=== PATIENT | male | born 1985 | race Caucasian/White ===

== ENCOUNTER 2022-11-13 14:15 | Emergency (ER) | payer SELFPAY ==
[2022-11-13 15:15] LABS: Absolute Lymphocytes (CBC) 2.3 K/uL (0.7-4.9); Hematocrit 46.4 % (39.6-49.0); Lymphocytes % 29.6 % (15.3-44.8); MCV 89.4 fL (80-100); RBC Red Blood Cell Count 5.19 M/uL (4.33-5.43)
[2022-11-13 15:30] LABS: Magnesium 2.4 mg/dL (1.6-2.4); Potassium 3.4 mmol/L (3.5-5.1)
--- NOTE | 2022-11-13 15:56 | RAD REPORT ---
EXAM DESCRIPTION: RAD - Chest Single View - 11/13/2022 3:32 pm CLINICAL HISTORY: CHEST PAIN COMPARISON: Portable 12/21/2017 TECHNIQUE: AP portable chest image was obtained 11/13/2022 3:32 pm . FINDINGS: Lung volumes are low which accentuates the interstitial pattern potentially masking mild e radha or infiltrate. Heart size and vasculature within range of normal for shallow inspiration exam. No measurable pleural effusion and no pneumothorax. No acute bony abnormality seen. No acute aortic findings suspected. IMPRESSION: Limited portable study without acute cardiopulmonary finding. Low lung volumes could mask minimal interstitial edema or infiltrate.
[2022-11-13 16:43] LABS: MPV 8.8 fL (7.6-11.3)
--- NOTE | 2022-11-13 17:38 | ER ---
Nurse's Notes [facility] [place] Name: Ezio James Age: 37 yrs Sex: Male : 1985 Arrival Date: 11/13/2022 Time: 14:16 Bed 20 Private MD: Diagnosis: Chest pain, unspecified;Essential (primary) hypertension Presentation: 11/13 14:17 Chief complaint: EMS states: Left sided chest pain x 1 hour. BGL 43, 130 after oral eh3 glucose. In police custody, officer remains at bedside. Coronavirus screen: At this time, the client does not indicate any symptoms associated with coronavirus-19. Ebola Screen: No symptoms or risks identified at this time. Initial Sepsis Screen: Does the patient meet any 2 criteria? No. Patient's initial sepsis screen is negative. Does the patient have a suspected source of infection? No. Patient's initial sepsis screen is negative. Risk Assessment: Do you want to hurt yourself or someone else? Patient reports no desire to harm self or others. Onset of symptoms was November 13, 2022. 14:17 Method Of Arrival: EMS: [place] [id number] 14:17 Acuity: LISETH 3 eh3 Triage Assessment: 14:19 General: Appears distressed, uncomfortable, Behavior is cooperative, appropriate for 3 age, agitated. Pain:. Historical: - Allergies: 14:19 No Known Allergies; eh3 - PMHx: 14:19 Hypertension; eh3 - Immunization history:: Adult Immunizations unknown. - Social history:: Smoking status: unknown. Screenin:00 [facility] ED Fall Risk Assessment (Adult) History of falling in the last 3 months, eh3 including since admission No falls in past 3 months (0 pts) Confusion or Disorientation No (0 pts) Intoxicated or Sedated No (0 pts) Impaired Gait No (0 pts) Mobility Assist Device Used No (0 pt) Altered Elimination No (0 pt) Score/Fall Risk Level 0 - 2 = Low Risk. Abuse screen: Denies threats or abuse. Denies injuries from another. Nutritional screening: No deficits noted. Tuberculosis screening: No symptoms or risk factors identified. Assessment: 14:19 Reassessment: No changes from previously documented assessment. See triage assessment. eh3 Pain: Pain does not radiate. Pain began 1 hour ago. Cardiovascular: Reports chest pain, lightheadedness, R ear pain Rhythm is sinus rhythm. 15:00 Reassessment: Patient appears in no apparent distress at this time. Patient and/or 3 family updated on plan of care and expected duration. Pain level reassessed. Patient is alert, oriented x 3, equal unlabored respirations, skin warm/dry/pink. 16:00 Reassessment: Patient appears in no apparent distress at this time. Patient and/or 3 family updated on plan of care and expected duration. Pain level reassessed. Patient is alert, oriented x 3, equal unlabored respirations, skin warm/dry/pink. 17:00 Reassessment: Patient appears in no apparent distress at this time. Patient and/or 3 family updated on plan of care and expected duration. Pain level reassessed. Patient is alert, oriented x 3, equal unlabored respirations, skin warm/dry/pink. Vital Signs: 14:17 BP 160 / 102; Pulse 88; Resp 21; Temp 97.8; Pulse Ox 100% on R/A; Weight 102.06 kg; 3 Height 5 ft. 10 in. (177.80 cm); Pain 8/10; 15:00 BP 140 / 83; Pulse 88; Resp 19; Pulse Ox 99% on R/A; 3 16:00 BP 150 / 72; Pulse 81; Resp 18; Pulse Ox 96% on R/A; eh3 17:00 BP 145 / 62; Pulse 86; Resp 18; Pulse Ox 99% on R/A; 3 14:17 Body Mass Index 32.28 (102.06 kg, 177.80 cm) [facility] ED Course: 14:16 Patient arrived in ED. ms3 14:16 Lewis Elaine DO is Attending Physician. ms3 14:19 Triage completed. 3 14:19 Arm band placed on. 3 14:44 Odalis Garcia, DALE is Primary Nurse. 3 14:55 Inserted saline lock: 20 gauge in right antecubital area, using aseptic technique. 3 Blood collected. 15:00 Patient has correct armband on for positive identification. Bed in low position. Call [facility] light in reach. Side rails up X2. Adult w/ patient. Client placed on continuous cardiac and pulse oximetry monitoring. NIBP monitoring applied. Door closed. Noise minimized. Lights dimmed. Warm blanket given. 15:00 Patient maintains SpO2 saturation greater than 95% on room air. eh3 15:34 XRAY Chest (1 view) In Process Unspecified. EDMS 17:37 Pancho Sorto DO is Referral Physician. ms3 17:37 Denys Rivera MD is Referral Physician. ms3 17:43 No provider procedures requiring assistance completed. IV discontinued, intact, eh3 bleeding controlled, No redness/swelling at site. Pressure dressing applied. Administered Medications: No medications were administered Medication: 17:43 VIS not applicable for this client. eh3 Outcome: 17:37 Discharge ordered by . ms3 17:49 Discharged to Law Enforcement eh3 17:49 Condition: stable 17:49 Discharge instructions given to patient, police, Instructed on discharge instructions, follow up and referral plans. Demonstrated understanding of instructions, follow-up care. 17:49 Patient left the ED. eh3 Signatures: Dispatcher [employer] EDNJ Lewis Elaine DO DO ms3 Odalis Garcia, RN RN eh3 Corrections: (The following items were deleted from the chart) 14:20 14:17 BP 148 / 88; Pulse 88bpm; Resp 21bpm; Pulse Ox 100% RA; Temp 97.8F; 102.06 kg; eh3 Height 5 ft. 10 in.; BMI: 32.2; Pain 8/10; eh3
--- NOTE | 2022-11-13 17:38 | EDPHYS ---
Physician Documentation [facility] Name: Ezio James Age: 37 yrs Sex: Male : 1985 Arrival Date: 11/13/2022 Time: 14:16 Bed 20 Private MD: ED Physician Lewis Elaine HPI: 11/13 14:32 This 37 yrs old Male presents to ER via EMS with complaints of Chest Pain. ms3 14:32 The patient or guardian reports chest pain that is located primarily in the chest ms3 diffusely. The pain radiates to the left arm. Associated signs and symptoms: Pertinent positives: None. Pertinent negatives: nausea, vomiting. The chest pain is described as sharp. Duration: The patient or guardian reports a single episode, that is still ongoing, and unchanged. Modifying factors: The symptoms are alleviated by nothing. Severity of pain: At its worst the pain was moderate in the emergency department the pain is unchanged. EMS care prior to arrival includes: aspirin, Oral glucose. Historical: - Allergies: 14:19 No Known Allergies; eh3 - PMHx: 14:19 Hypertension; eh3 - Immunization history:: Adult Immunizations unknown. - Social history:: Smoking status: unknown. ROS: 14:32 Constitutional: Negative for fever, and chills. Neck: Negative for injury, pain, and ms3 swelling. 14:32 Respiratory: Negative for shortness of breath, cough, wheezing, and pleuritic chest pain, Abdomen/GI: Negative for abdominal pain, nausea, vomiting, diarrhea, and constipation, MS/Extremity: Negative for injury and deformity, Skin: Negative for injury, rash, and discoloration. 14:32 Cardiovascular: Positive for chest pain. 14:32 All other systems are negative. Exam: 14:32 Constitutional: This is a well developed, well nourished patient who is awake, alert, ms3 and in no acute distress. Head/Face: Normocephalic, atraumatic. Neck: Trachea midline, no cervical lymphadenopathy. Supple, full range of motion without nuchal rigidity, or vertebral point tenderness. No Meningismus. Chest/axilla: Normal chest wall appearance and motion. Nontender with no deformity. Cardiovascular: Regular rate and rhythm with a normal S1 and S2. No gallops, murmurs, or rubs. Normal PMI, no JVD. No pulse deficits. Respiratory: Lungs have equal breath sounds bilaterally, clear to auscultation and percussion. No rales, rhonchi or wheezes noted. No increased work of breathing, no retractions or nasal flaring. Abdomen/GI: Soft, non-tender, with normal bowel sounds. No distension or tympany. No guarding or rebound. No evidence of tenderness throughout. Skin: Warm, dry with normal turgor. Normal color with no rashes, no lesions, and no evidence of cellulitis. MS/ Extremity: Pulses equal, no cyanosis. Neurovascular intact. Full, normal range of motion. 14:53 ECG was reviewed by the Attending Physician. mi3 Vital Signs: 14:17 BP 160 / 102; Pulse 88; Resp 21; Temp 97.8; Pulse Ox 100% on R/A; Weight 102.06 kg; 3 Height 5 ft. 10 in. (177.80 cm); Pain 8/10; 15:00 BP 140 / 83; Pulse 88; Resp 19; Pulse Ox 99% on R/A; eh3 16:00 BP 150 / 72; Pulse 81; Resp 18; Pulse Ox 96% on R/A; 3 17:00 BP 145 / 62; Pulse 86; Resp 18; Pulse Ox 99% on R/A; 3 14:17 Body Mass Index 32.28 (102.06 kg, 177.80 cm) [facility] MDM: 14:16 Patient medically screened. ms3 14:32 Differential diagnosis: abnormal EKG. ms3 18:04 HEART Score: History: Slightly Suspicious (0), ECG: Normal (0), Age: < or = 45 years ms3 (0), Risk Factors: 1 or 2 risk factors (1), Troponin: < or = 1 x Normal Limit (0), Total Score = 1. Data reviewed: vital signs, nurses notes, lab test result(s), EKG, radiologic studies, and as a result, I will discharge patient. Counseling: I had a detailed discussion with the patient and/or guardian regarding: the historical points, exam findings, and any diagnostic results supporting the discharge/admit diagnosis, lab results, radiology results, the need for outpatient follow up, to return to the emergency department if symptoms worsen or persist or if there are any questions or concerns that arise at home. ED course: Discussed labs, EKG, chest x-ray with patient. Patient to follow-up with primary care physician in 2 to 3 days. Patient understands and agrees with plan. All questions were answered. Return precautions discussed include worsening symptoms, or any other concerns. 11/13 14:31 Order name: Basic Metabolic Panel; Complete Time: 16:16 ms3 11/13 14:31 Order name: CBC with Diff; Complete Time: 17:02 ms3 11/13 14:31 Order name: Magnesium; Complete Time: 16:16 ms3 11/13 14:31 Order name: NT PRO-BNP; Complete Time: 16:16 ms3 11/13 14:31 Order name: Troponin HS; Complete Time: 16:16 ms3 11/13 16:16 Order name: Troponin High Sensitivity; Complete Time: 17:24 ms3 11/13 14:31 Order name: XRAY Chest (1 view); Complete Time: 16:16 ms3 11/13 14:31 Order name: EKG; Complete Time: 14:32 ms3 11/13 14:31 Order name: Cardiac monitoring; Complete Time: 15:05 ms3 11/13 14:31 Order name: EKG - Nurse/Tech; Complete Time: 15:05 ms3 11/13 14:31 Order name: IV Saline Lock; Complete Time: 15:05 ms3 11/13 14:31 Order name: Labs collected and sent; Complete Time: 15:05 ms3 11/13 17:48 Order name: Glucose, Ancillary Testing EDMS 11/13 14:31 Order name: O2 Per Protocol; Complete Time: 15:05 ms3 11/13 14:31 Order name: O2 Sat Monitoring; Complete Time: 15:05 ms3 11/13 17:28 Order name: Fingerstick Glucose; Complete Time: 17:40 ms3 EC:53 Rate is 79 beats/min. Rhythm is regular. QRS [place] is Normal. [place] interval is normal. QRS ms3 interval is normal. QT interval is normal. Clinical impression: Normal ECG. Interpreted by me. Reviewed by me. Administered Medications: No medications were administered Disposition Summary: 11/13/22 17:37 Discharge Ordered Location: Home ms3 Condition: Stable ms3 Diagnosis - Chest pain, unspecified ms3 - Essential (primary) hypertension ms3 Followup: ms3 - With: - When: 2 - 3 days - Reason: Recheck today's complaints Followup: ms3 - With: - When: 2 - 3 days - Reason: Recheck today's complaints Discharge Instructions: - Discharge Summary Sheet ms3 - Nonspecific Chest Pain, Adult ms3 Forms: - Medication Reconciliation Form ms3 - Thank You Letter ms3 - Antibiotic Education ms3 - Prescription Opioid Use ms3 Signatures: Dispatcher [employer] EDMS Lewis Elaine, DO ms3 Odalis Garcia RN RN eh3
[2022-11-13 17:56] VITALS: TEMP 97.8
[2022-11-13 17:59] VITALS: BP 145/62; O2SAT 99
--- NOTE | 2022-11-15 17:03 | EKG ---
Test Date: 2022-11-13 Test Time: 14:51:51 Environmental Permitting Specialist: SPEEDY MEASUREMENT RESULTS: Intervals: Rate: 0 [place]: QRSD: 0 QT: 0 QTc: 0 [place]: P: [place]: QRS: 0 T: 0 INTERPRETIVE STATEMENTS: No QRS complexes found, no ECG analysis possible Electronically Signed On 11-15-22 17:02:02 TEAM MEMBER by Denys Rivera
== END 2022-11-13 17:49 | disposition home or self-care (01) ==
LOC: ER 14:15
DX: R07.89 Other chest pain (principal); I10 Essential (primary) hypertension
CPT/HCPCS: 36415; 71045; 80048; 82947; 83735; 83880; 84484; 85025; 93005; 99285

== ENCOUNTER 2023-05-16 23:12 | Emergency (ER) | payer SELFPAY ==
--- NOTE | 2023-05-16 23:17 | EDPHYS ---
Physician Documentation [facility] Name: Ezio James Age: 37 yrs Sex: Male : 1985 Arrival Date: 05/16/2023 Time: 23:12 Bed 2 Private MD: ED Physician Lewis Elaine HPI: 05/16 23:16 This 37 yrs old Male presents to ER via Unassigned with complaints of headache. ms3 23:16 37-year-old male with past medical history of anxiety, seizures presents via [address] [facility] for headache and anxiety attack. Patient states he is having moderate generalized headache. Patient denies alleviating or inciting factors.. Historical: - PMHx: 23:23 Hypertension; rv - PSHx: 23:23 None; rv - Immunization history:: Adult Immunizations unknown. - Social history:: Smoking status: Patient denies any tobacco usage or history of. ROS: 23:16 Constitutional: Negative for fever, and chills. Neck: Negative for injury, pain, and ms3 swelling, Cardiovascular: Negative for chest pain, and palpitations. Respiratory: Negative for shortness of breath, cough, wheezing, and pleuritic chest pain, Abdomen/GI: Negative for abdominal pain, nausea, vomiting, diarrhea, and constipation. 23:16 Neuro: Positive for headache. 23:16 All other systems are negative. Exam: 23:16 Constitutional: This is a well developed, well nourished patient who is awake, alert, ms3 and in no acute distress. Head/Face: Normocephalic, atraumatic. Neck: Trachea midline, no cervical lymphadenopathy. Supple, full range of motion without nuchal rigidity, or vertebral point tenderness. No Meningismus. Chest/axilla: Normal chest wall appearance and motion. Nontender with no deformity. Cardiovascular: Regular rate and rhythm with a normal S1 and S2. No gallops, murmurs, or rubs. Normal PMI, no JVD. No pulse deficits. Respiratory: Lungs have equal breath sounds bilaterally, clear to auscultation and percussion. No rales, rhonchi or wheezes noted. No increased work of breathing, no retractions or nasal flaring. Abdomen/GI: Soft, non-tender, with normal bowel sounds. No distension or tympany. No guarding or rebound. No evidence of tenderness throughout. Skin: Warm, dry with normal turgor. Normal color with no rashes, no lesions, and no evidence of cellulitis. MS/ Extremity: Pulses equal, no cyanosis. Neurovascular intact. Full, normal range of motion. Neuro: Awake and alert, GCS 15, oriented to person, place, time, and situation. Cranial nerves II-XII grossly intact. Motor strength 5/5 in all extremities. Sensory grossly intact. Cerebellar exam normal. Normal gait. Vital Signs: 23:00 BP 169 / 92; Pulse 92; Resp 19; Temp 98; Pulse Ox 100% ; Weight 90.72 kg; Height 5 ft. rv 10 in. ; 23:00 Body Mass Index 28.70 (90.72 kg, 177.8 cm) rv MDM: 23:15 Patient medically screened. ms3 23:16 Differential diagnosis: tension headache, Anxiety. ED course: After evaluation patient ms3 states he does not want to receive treatment. Would only like Tylenol and ibuprofen for his headache. Discussed risks of not receiving complete evaluation. Patient understands agrees with plan. All questions were answered. Return precautions discussed include any worsening symptoms, nausea, vomiting, fevers, chills, or any other concerns.. 05/17 00:06 Data reviewed: vital signs, nurses notes, and as a result, I will discharge patient. I ms3 considered the following discharge prescriptions or medication management in the emergency department Medications were administered in the Emergency Department. See MAR. Counseling: I had a detailed discussion with the patient and/or guardian regarding: the historical points, exam findings, and any diagnostic results supporting the discharge/admit diagnosis, the need for outpatient follow up, to return to the emergency department if symptoms worsen or persist or if there are any questions or concerns that arise at home. Administered Medications: 05/16 23:21 Drug: Ibuprofen PO 600 mg Route: PO; rv 23:25 Follow up: Response: Medication administered at discharge. rv 23:21 Drug: Acetaminophen PO 650 mg Route: PO; rv 23:25 Follow up: Response: Medication administered at discharge. rv Disposition Summary: 05/16/23 23:16 Discharge Ordered Location: Home ms3 Condition: Stable ms3 Diagnosis - Headache ms3 Followup: ms3 - With: Flaquito Kumar MD - When: 2 - 3 days - Reason: Recheck today's complaints Discharge Instructions: - Discharge Summary Sheet ms3 - General Headache Without Cause ms3 Forms: - Medication Reconciliation Form ms3 - Thank You Letter ms3 - Antibiotic Education ms3 - Prescription Opioid Use ms3 Signatures: Samir Patel, RN RN Lewis Ross DO DO ms3
--- NOTE | 2023-05-16 23:26 | ER ---
Nurse's Notes [facility] [place] Name: Ezio James Age: 37 yrs Sex: Male : 1985 Arrival Date: 05/16/2023 Time: 23:12 Bed 2 Private MD: Diagnosis: Headache Presentation: 05/16 23:00 Chief complaint: EMS states: pt was taken to retirement, started complaining of CP, vomiting, rv seizure. upon arrival to ED, refused any medical treatment and just asked for tylenol and motrin for headache. 23:00 Coronavirus screen: Vaccine status:. Ebola Screen: Patient negative for fever greater rv than or equal to 101.5 degrees Fahrenheit, and additional compatible Ebola Virus Disease symptoms Patient denies exposure to infectious person. Patient denies travel to an Ebola-affected area in the 21 days before illness onset. Initial Sepsis Screen: Does the patient meet any 2 criteria? No. Patient's initial sepsis screen is negative. Does the patient have a suspected source of infection? No. Patient's initial sepsis screen is negative. Risk Assessment: Do you want to hurt yourself or someone else? Patient reports no desire to harm self or others. Onset of symptoms was May 16, 2023. 23:00 Method Of Arrival: EMS: [facility] rv 23:00 Method Of Arrival: Law Enforcement: [facility] rv 23:00 Acuity: LISETH 3 rv Triage Assessment: 23:23 General: Appears unkempt, Behavior is restless, uncooperative. Pain: Complains of pain rv in headache. Neuro: Level of Consciousness is awake, alert, obeys commands, Oriented to person, place, time, situation, Reports headache. Cardiovascular: Capillary refill < 3 seconds. Respiratory: Airway is patent Respiratory effort is even, unlabored. Historical: - PMHx: 23:23 Hypertension; rv - PSHx: 23:23 None; rv - Immunization history:: Adult Immunizations unknown. - Social history:: Smoking status: Patient denies any tobacco usage or history of. Screenin:24 [facility] ED Fall Risk Assessment (Adult) History of falling in the last 3 months, rv including since admission. Abuse screen: Denies threats or abuse. Denies injuries from another. Nutritional screening: No deficits noted. Tuberculosis screening: No symptoms or risk factors identified. Vital Signs: 23:00 BP 169 / 92; Pulse 92; Resp 19; Temp 98; Pulse Ox 100% ; Weight 90.72 kg; Height 5 ft. rv 10 in. ; 23:00 Body Mass Index 28.70 (90.72 kg, 177.8 cm) rv ED Course: 23:13 Patient arrived in ED. la1 23:15 Lewis Elaine DO is Attending Physician. ms3 23:15 Flaquito Kumar MD is Referral Physician. ms3 23:17 Samir Patel, DALE is Primary Nurse. rv 23:23 Triage completed. rv 23:24 Arm band placed on. rv 23:24 Patient has correct armband on for positive identification. rv 23:25 No provider procedures requiring assistance completed. Patient did not have IV access rv during this emergency room visit. Administered Medications: 23:21 Drug: Ibuprofen PO 600 mg Route: PO; rv 23:25 Follow up: Response: Medication administered at discharge. rv 23:21 Drug: Acetaminophen PO 650 mg Route: PO; rv 23:25 Follow up: Response: Medication administered at discharge. rv Medication: 23:24 VIS not applicable for this client. rv Outcome: 23:16 Discharge ordered by . ms3 23:25 Discharged to Law Enforcement rv 23:25 Condition: good 23:25 Discharge instructions given to patient, Instructed on discharge instructions, follow up and referral plans. Demonstrated understanding of instructions, follow-up care. 23:25 Patient left the ED. rv Signatures: Brian Neville, GRAIN SAMPLER-C GRAIN SAMPLER-Cla1 Samir Patel RN RN rv Lewis Elaine DO DO ms3
[2023-05-16] MEDS ORDERED: IBUPROFEN 200 MG TAB PO ONE (23:27)
[2023-05-16] MEDS ORDERED: IBUPROFEN 400 MG TAB ONE (23:27)
[2023-05-16] MEDS ORDERED: ACETAMINOPHEN 325 MG TABLET ONE (23:27)
== END 2023-05-16 23:25 | disposition home or self-care (01) ==
LOC: ER 23:12
DX: R51.9 Headache, unspecified (principal); I10 Essential (primary) hypertension
CPT/HCPCS: 99284

== ENCOUNTER 2023-07-22 20:09 | Emergency (ER) | payer SELFPAY ==
[2023-07-22] MEDS ORDERED: LIDOCAINE 1% MPF 30 ML VIAL ONE (20:49)
--- NOTE | 2023-07-22 21:12 | ER ---
Nurse's Notes 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 Coronavirus screen: At this time, the client does not indicate any symptoms associated with coronavirus-19. Ebola Screen: No symptoms or risks identified at this time. Initial Sepsis Screen: Does the patient meet any 2 criteria? No. Patient's initial sepsis screen is negative. Does the patient have a suspected source of infection? No. Patient's initial sepsis screen is negative. Risk Assessment: Do you want to hurt yourself or someone else? Patient reports no desire to harm self or others. Onset of symptoms was July 22, 2023. 20:14 Method Of Arrival: Ambulatory ap3 20:14 Acuity: LISETH 4 ap3 Triage Assessment: 20:15 General: Appears in no apparent distress. Behavior is calm, cooperative, appropriate ap3 for age. Pain: Complains of pain in right thumb Pain currently is 7 out of 10 on a pain scale. Neuro: Level of Consciousness is awake, alert, obeys commands, Oriented to person, place, time, situation. Cardiovascular: Patient's skin is warm and dry. Respiratory: Airway is patent Respiratory effort is even, unlabored, Respiratory pattern is regular, symmetrical. Historical: - Allergies: 20:15 No Known Allergies; ap3 - Home Meds: 20:15 None [Active]; ap3 - PMHx: 20:15 Hypertension; ap3 - Immunization history:: Last tetanus immunization: up to date. - Social history:: Smoking status: Patient denies any tobacco usage or history of. - Family history:: not pertinent. Screenin:16 [facility] ED Fall Risk Assessment (Adult) History of falling in the last 3 months, ap3 including since admission No falls in past 3 months (0 pts). Abuse screen: Denies threats or abuse. Nutritional screening: No deficits noted. Tuberculosis screening: No symptoms or risk factors identified. Assessment: 21:00 Reassessment: Patient appears in no apparent distress at this time. Patient and/or pf1 family updated on plan of care and expected duration. Pain level reassessed. Patient states feeling better. Patient states symptoms have improved. Vital Signs: 20:14 Pulse 88; Resp 18; Temp 98.4; Pulse Ox 99% ; Weight 99.79 kg; Height 5 ft. 11 in. ; ap3 Pain 6/10; 20:17 BP 155 / 92; ap3 20:14 Body Mass Index 30.68 (99.79 kg, 180.34 cm) ap3 20:14 Pain Scale: Adult ap3 ED Course: 20:11 Patient arrived in ED. mr 20:12 Eamon Friedman MD is Attending Physician. sp4 20:15 Triage completed. ap3 20:16 Arm band placed on left wrist. ap3 20:16 Patient has correct armband on for positive identification. pf1 21:35 Provided Education on: wound care instructions. pf1 21:35 No provider procedures requiring assistance completed. pf1 21:35 Patient did not have IV access during this emergency room visit. pf1 Administered Medications: 21:23 Drug: Lidocaine Infiltration (1 %) 30 ml {Note: Administered by Dr. friedman.} Volume: pf1 20 ml; Route: Infiltration; 21:25 Drug: Ibuprofen PO 800 mg Route: PO; pf1 21:35 Follow up: Response: No adverse reaction; Marked relief of symptoms; Pain is decreased pf1 21:25 Drug: traMADol PO 100 mg Route: PO; pf1 21:35 Follow up: Response: No adverse reaction; Marked relief of symptoms; Pain is decreased pf1 21:25 Drug: Ondansetron PO 4 mg Route: PO; pf1 21:35 Follow up: Response: No adverse reaction; Marked relief of symptoms pf1 Medication: 20:16 VIS not applicable for this client. ap3 Outcome: 21:11 Discharge ordered by . sp4 21:34 Discharged to home ambulatory, with family. pf1 21:34 Condition: improved 21:34 Discharge instructions given to patient, family, Instructed on discharge instructions, follow up and referral plans. Demonstrated understanding of instructions, follow-up care, wound care. 21:35 Patient left the ED. pf1 Signatures: Ariella Maxwell mr Ariella Hawley RN RN ap3 Kelly Francis RN RN pf1 Eamon Friedman MD MD sp4
--- NOTE | 2023-07-22 21:12 | EDPHYS ---
Physician Documentation [facility] Name: Ezio James Age: 37 yrs Sex: Male : 1985 Arrival Date: 07/22/2023 Time: 20:09 Bed DIS3 Private MD: ED Physician Eamon Friedman HPI: 07/22 20:14 This 37 yrs old Male presents to ER via Unassigned with complaints of Thumb sp4 laceration. 20:19 37-year-old male presents with acute skin avulsion from the right distal thumb, sp4 starting estimated 2 hours [employer]CH[employer]. Patient is here because the laceration would not stop bleeding. Last tetanus shot reported 1-1/2 years ago after stepping on a nail. No medical allergies, no other injury.. Historical: - Allergies: 20:15 No Known Allergies; ap3 - Home Meds: 20:15 None [Active]; ap3 - PMHx: 20:15 Hypertension; ap3 - Immunization history:: Last tetanus immunization: up to date. - Social history:: Smoking status: Patient denies any tobacco usage or history of. - Family history:: not pertinent. ROS: 20:19 Constitutional: Negative for fever, chills, and weight loss, MS/Extremity: Positive sp4 skin avulsion of the right distal thumb, otherwise no additional injury, negative for deformity 20:19 All other systems are negative. Exam: 20:19 Constitutional: This is a well developed, well nourished patient who is awake, alert, sp4 and in no acute distress. Head/Face: Normocephalic, atraumatic. Eyes: Pupils equal round and reactive to light, extra-ocular motions intact. Lids and lashes normal. Conjunctiva and sclera are not injected. Cornea within normal limits. Periorbital areas with no swelling, redness, or edema. ENT: Nares patent. No nasal discharge, no septal abnormalities noted. Tympanic membranes are normal and external auditory canals are clear. Oropharynx with no redness, swelling, or masses, exudates, or evidence of obstruction, uvula midline. Mucous membranes moist. Neck: Trachea midline, no thyromegaly or masses palpated, and no cervical lymphadenopathy. Supple, full range of motion without nuchal rigidity, or vertebral point tenderness. Chest/axilla: Normal chest wall appearance and motion. Nontender with no deformity. No lesions are appreciated. Cardiovascular: Regular rate and rhythm with a normal S1 and S2. No gallops, murmurs, or rubs. Normal PMI, no JVD. No pulse deficits. Respiratory: Lungs have equal breath sounds bilaterally, clear to auscultation and percussion. No rales, rhonchi or wheezes noted. No increased work of breathing, no retractions or nasal flaring. Abdomen/GI: Soft, non-tender, with normal bowel sounds. No distension or tympany. No guarding or rebound. No evidence of tenderness throughout. Back: No spinal tenderness. No costovertebral tenderness. Skin: Warm, dry with normal turgor. Normal color with no rashes, no lesions, and no evidence of cellulitis. MS/ Extremity: Pulses equal, no cyanosis. Neurovascular intact. Full, normal range of motion. Positive small skin avulsion on the right distal thumb located on the radial side of the thumb-small skin avulsion with persistent bleeding Neuro: Awake and alert, GCS 15, oriented to person, place, time, and situation. Cranial nerves II-XII grossly intact. Motor strength 5/5 in all extremities. Sensory grossly intact. Psych: Awake, alert, with orientation to person, place and time. Behavior, mood, and affect are within normal limits Vital Signs: 20:14 Pulse 88; Resp 18; Temp 98.4; Pulse Ox 99% ; Weight 99.79 kg; Height 5 ft. 11 in. ; ap3 Pain 6/10; 20:17 BP 155 / 92; ap3 20:14 Body Mass Index 30.68 (99.79 kg, 180.34 cm) ap3 20:14 Pain Scale: Adult ap3 Laceration: 21:08 Wound Repair of 1cm ( 0.4in ) subcutaneous laceration to palmar aspect of distal sp4 phalanx of right thumb - SMALL SKIN AVULSION RADIAL SIDE OF THE THUMB . SKIN AVULSION VIA BOXCUTTER . Distal neuro/vascular/tendon intact. Anesthesia: RIGHT THUMB DIGITAL BLOCK with 5 mls of 1% lidocaine. Wound prep: Moderate cleansing by me, Copious irrigation. Skin closed with 4 4-0 Silk using interrupted sutures and sterile technique. Dressed with Kerlix, non-adherent dressing. Patient tolerated well. MDM: 21:07 Patient medically screened. sp4 21:12 Differential Diagnosis Laceration, avulsion, puncture wound. Data reviewed: vital sp4 signs, nurses notes, old medical records. ED course: Skin avulsion was pulled together with silk sutures to prevent further bleeding.. Patient stable for discharge home.. Suture removal is not necessary we will advised to let sutures followed by themselves.. 07/22 20:18 Order name: Dressing - Wound; Complete Time: 21:23 sp4 07/22 20:18 Order name: Gloves, Sterile; Complete Time: 21:23 sp4 07/22 20:18 Order name: Setup Suture Tray; Complete Time: 21:23 sp4 Administered Medications: 21:23 Drug: Lidocaine Infiltration (1 %) 30 ml {Note: Administered by Dr. friedman.} Volume: pf1 20 ml; Route: Infiltration; 21:25 Drug: Ibuprofen PO 800 mg Route: PO; pf1 21:35 Follow up: Response: No adverse reaction; Marked relief of symptoms; Pain is decreased pf1 21:25 Drug: traMADol PO 100 mg Route: PO; pf1 21:35 Follow up: Response: No adverse reaction; Marked relief of symptoms; Pain is decreased pf1 21:25 Drug: Ondansetron PO 4 mg Route: PO; pf1 21:35 Follow up: Response: No adverse reaction; Marked relief of symptoms pf1 Disposition Summary: 07/22/23 21:11 Discharge Ordered Location: Home sp4 Problem: new sp4 Symptoms: have improved sp4 Condition: Stable sp4 Diagnosis - Right distal thumb skin avulsion sp4 Followup: sp4 - With: Private Physician - When: As needed - Reason: Discharge Instructions: - Discharge Summary Sheet sp4 - Laceration Care, Adult, [id number] sp4 Forms: - Patient Portal Instructions sp4 - Leadership Thank You Letter sp4 Signatures: Ariella Hawley RN RN ap3 Kelly Francis RN RN pf1 Eamon Friedman MD MD sp4 Corrections: (The following items were deleted from the chart) 21:13 20:19 Constitutional: This is a well developed, well nourished patient who is awake, sp4 alert, and in no acute distress. Head/Face: Normocephalic, atraumatic. Eyes: Pupils equal round and reactive to light, extra-ocular motions intact. Lids and lashes normal. Conjunctiva and sclera are not injected. Cornea within normal limits. Periorbital areas with no swelling, redness, or edema. ENT: Nares patent. No nasal discharge, no septal abnormalities noted. Tympanic membranes are normal and external auditory canals are clear. Oropharynx with no redness, swelling, or masses, exudates, or evidence of obstruction, uvula midline. Mucous membranes moist. Neck: Trachea midline, no thyromegaly or masses palpated, and no cervical lymphadenopathy. Supple, full range of motion without nuchal rigidity, or vertebral point tenderness. Chest/axilla: Normal chest wall appearance and motion. Nontender with no deformity. No lesions are appreciated. Cardiovascular: Regular rate and rhythm with a normal S1 and S2. No gallops, murmurs, or rubs. Normal PMI, no JVD. No pulse deficits. Respiratory: Lungs have equal breath sounds bilaterally, clear to auscultation and percussion. No rales, rhonchi or wheezes noted. No increased work of breathing, no retractions or nasal flaring. Abdomen/GI: Soft, non-tender, with normal bowel sounds. No distension or tympany. No guarding or rebound. No evidence of tenderness throughout. Back: No spinal tenderness. No costovertebral tenderness. Skin: Warm, dry with normal turgor. Normal color with no rashes, no lesions, and no evidence of cellulitis. MS/ Extremity: Pulses equal, no cyanosis. Neurovascular intact. Full, normal range of motion. Positive small skin avulsion on the right distal thumb located on the ulnar side distal right thumb Neuro: Awake and alert, GCS 15, oriented to person, place, time, and situation. Cranial nerves II-XII grossly intact. Motor strength 5/5 in all extremities. Sensory grossly intact. Psych: Awake, alert, with orientation to person, place and time. Behavior, mood, and affect are within normal limits sp4
[2023-07-22] MEDS ORDERED: TRAMADOL HCL 50 MG TAB ONE (21:38)
[2023-07-22] MEDS ORDERED: IBUPROFEN 400 MG TAB ONE (21:38)
[2023-07-22] MEDS ORDERED: ONDANSETRON 4 MG (ODT) TAB ONE (21:39)
[2023-07-22 23:29] VITALS: TEMP 98.4; O2SAT 99
[2023-07-22 23:30] VITALS: BP 155/92
== END 2023-07-22 21:35 | disposition home or self-care (01) ==
LOC: ER 20:09
PROC: 0HQFXZZ Repair Right Hand Skin, External Approach (ICD-10-PCS; principal; 2023-07-22)
DX: S61.011A Laceration without foreign body of right thumb without damage to nail, initial encounter (principal)
CPT/HCPCS: 99283; J2001; Q0162